=== PATIENT | male | born 1995 | race Caucasian/White ===

== ENCOUNTER 2024-10-27 23:39 | Emergency (ER) | payer SELFPAY ==
--- OUTSIDE RECORDS SUMMARY | 2011-01-18 19:00 | XMS_ITS | Continuity of Care Document ---
Author Organization [facility] Address [address] [place] [address] [place] [address] Phone Care Team Providers Care Personal Development Educator Name Role Phone Provider, Conversion Unavailable Unavailable Allergies, Adverse Reactions, Alerts Substance Reaction Status Criticality No Known Drug Allergies Active No I nformation Medications Medication Instructions Dosage Effective Dates (start - stop) Status Comments benztropine 2 mg tablet MG - Ac tive Concerta 18 mg tablet,extended release MG - Active Depakote 500 mg tablet,delayed release MG - Active risperidone 0.25 mg tablet MG - Active Results Test Name Date and Time Measure Units Reference Range Abnormal Flag Status Commen ts Panel Description: BETA HEMOLYTIC STREP, A ONLY Final Strep 00:00:00 Positive Negative Final Advance Directives Directive Yes / No Effective Date File Name No Information Encounters Encounter Description Practice Location Reason(s) For Visit Diagnoses Date Provider Providers Copied on Encounter [address] [place], [id number], [place] tel:[phone] [facility] No Information 1 Provider Conversion. . [address] [place], [id number], [place] tel:[phone] [facility] No Information Unidentified Provider. [address] [place] [address], [id number], . Family History Family Member Type Diagnosis Age At Onset Family H/O Problem (finding) FHX: Asthma Family H/O Problem (finding) FHX: Cancer, Unspecifie d Family H/O Problem (finding) FHX: Hypertension Payers Payer name Insurance type Covered alliance party ID Authoriza tion(s) No Information Social History Type Description Quantity Date Captured Comments Sex Male Smoking Status No Information Vital Signs Date / Time: Height Weight BMI Pulse Rate Blood Pressure Temperature Respiratory Rate Body Surface Area Head Circumference Head Circ. Percentile Wt./Dax. Percentile BMI percentile Pulse Ox Inhaled Ox 63.00 in 125.00 lbs 88 /min 101/49 mm[Hg] 99.90 F 22 /min Chief Complaint And Reason For Visit No Information Reason For Referral Reason For Referral No Information History Of Present Illness Encounter Date Complaint History Of Prese nt Illness No Information Functional Status Date Functional Assessmen t No Information Instructions Date Instruction Additional Infor mation No Information Assessments Type Assessment Date No Information Patient Care Teams Name Effective Dates (start - stop) Status Members No Information
--- NOTE | ~2024-10-27 | XR_ITS ---
EXAM/PROCEDURE: XR chest 1V - 10/27/2024 23:55 CDT HISTORY: 28 years old Male with sob TECHNIQUE: AP view(s) of the chest. COMPARISON: None available. FINDINGS: LUNGS/ PLEURA: No focal consolidation. No appreciable pneumothorax or large pleural effusion. HEART/ MEDIASTINUM: Heart appears normal in size. BONES: No acute osseous abnormality. OTHER: Visualized upper abdomen is unremarkable. IMPRESSION: No acute process. Reviewed, dictated and finalized at location N. IMPRESSION: No acute process.
[2024-10-27 23:51] VITALS: BP 132/64; PULSE 64; RESP 18; TEMP 36.6; O2SAT 96
[2024-10-28 01:40] VITALS: O2SAT 98
--- NOTE | 2024-10-28 01:44 | ED.GENADULT ---
HPI - General Adult General Chief complaint: Shortness of Breath/Dyspnea Stated complaint: possible pneumonia Time Seen by Provider: 10/28/24 01:41 History of Present Illness HPI narrative: Patient is a 28-year-old male who presents to the emergency department this evening complaining of a cough and shortness of breath for the past 2 days. States that his significant other was recently diagnosed with pneumonia and was concerned that he is developing pneumonia as well. Admits that the cough is productive of some clear phlegm. Denies any fevers or chills at home. No additional symptoms or concerns at this time. Review of Systems Review of Systems: All systems are reviewed and are negative unless stated otherwise in the HPI. Exam Narrative: General: Alert, awake, afebrile, in no acute distress. HEENT: PERRL, no rhinorrhea, no post nasal drip, oropharynx clear. Neck: Trachea midline, no JVD, no lymphadenopathy. Cardiovascular: Regular rate and rhythm, no murmurs, rubs or gallops, no peripheral edema. Respiratory: Clear to auscultation bilaterally, no tachypnea, no wheezing, no rhonchi, no rubs, no respiratory distress. Abdomen: Soft, nontender, nondistended, no rebound, no guarding, no peritoneal signs. Musculoskeletal: No joint swelling or deformity, normal muscle tone. Skin: No rashes or petechia, no signs of infection. Psychiatric: Alert and oriented, normal behavior and judgment for situation. Neurological: Alert and oriented to person, place, and time. Follows all commands. No focal deficits, speech is clear and fluent. Course Vital Signs Vital signs: Vital Signs Temperature 97.8 F 10/27/24 23:51 Pulse Rate 64 10/27/24 23:51 Respiratory Rate 18 10/27/24 23:51 Blood Pressure 132/64 10/27/24 23:51 Pulse Oximetry 96 10/27/24 23:51 Temperature 97.8 F 10/27/24 23:51 Pulse Rate 64 10/27/24 23:51 Respiratory Rate 18 10/27/24 23:51 Blood Pressure 132/64 10/27/24 23:51 Pulse Oximetry 96 10/27/24 23:51 Medical Decision Making MDM Narrative Medical decision making narrative: The patient was evaluated by myself in the emergency department. History is obtained from patient who is an independent historian and physical exam was performed. External medical records were reviewed at this time. Imaging studies obtained included CXR which was independently interpreted by me revealing no acute cardiopulmonary process, which is pending final radiology interpretation. Differential diagnosis considerations include acute viral syndrome, infectious process such as pneumonia, reactive airway disease. Comorbidities impacting this visit include no acute process. I have evaluated and discussed social determinants of health with the patient that could potentially impact subsequent diagnosis and treatment plans. On repeat assessment of the patient, reevaluation revealed that the patient is doing well and is in no acute distress. Patient symptoms have improved since he arrived to our emergency department. Repeat vital signs were all reviewed and noted to be stable. Differential diagnosis and treatment plan were discussed with the patient at bedside. Patient agrees with discussion and after shared medical decision making agrees with discharge. All questions were answered to the patient's satisfaction. Patient will follow up with his PCP in 3-5 days. Patient was provided with strict return precautions and instructed to return to the emergency department if any new or worsening symptoms develop. The patient was discharged in stable condition. Vital Signs Vital Signs: Vital Signs Temperature 97.8 F 10/27/24 23:51 Pulse Rate 64 10/27/24 23:51 Respiratory Rate 18 10/27/24 23:51 Blood Pressure 132/64 10/27/24 23:51 Pulse Oximetry 96 10/27/24 23:51 Temperature 97.8 F 10/27/24 23:51 Pulse Rate 64 10/27/24 23:51 Respiratory Rate 18 10/27/24 23:51 Blood Pressure 132/64 10/27/24 23:51 Pulse Oximetry 96 10/27/24 23:51 Discharge Plan Discharge Clinical Impression: Upper respiratory infection Patient Disposition: Home Condition: Improved Instructions: Antibiotic Form, Upper Respiratory Infection (ED) Additional Instructions: Please follow-up with your family doctor within the next 3-5 days. The emergency department if any new or worsening symptoms develop. Patient Language: Nepali Follow-up/Referrals: Nirali Mobley DO [Physician, Family Practice] - 3 Days PHYSICIAN,INFORMATICA MDM ARCHITECT [Primary Care Provider, Internal Medicine] Time of Disposition: 01:45
== END 2024-10-28 02:10 | disposition home or self-care (01) ==
LOC: ANHED 10-28 01:53
PROVIDERS: Emergency Provider Emergency Medicine
DX: J06.9 Acute upper respiratory infection, unspecified (principal)
CPT/HCPCS: 71045; 99283

== ENCOUNTER 2025-01-15 17:58 | Emergency (ER) | payer SELFPAY ==
--- NOTE | ~2025-01-15 | XR_ITS ---
EXAMINATION: XR chest 2V, 01/15/2025 19:05 BALLAST INSPECTOR HISTORY: Coughing COMPARISON: No comparisons available. Technique: 2 views obtained. Findings: The lungs are clear, no effusion. No pneumothorax. Heart is normal size. Mediastinal and hilar contours are within normal limits. Bony thorax no acute abnormality. Impression: No acute cardiopulmonary abnormality. Reviewed, dictated and finalized at location P. AST INSPECTOR Impression: No acute cardiopulmonary abnormality.
[2025-01-15 18:08] VITALS: BP 118/75; PULSE 63; RESP 18; TEMP 36.6; O2SAT 100
--- NOTE | 2025-01-15 18:15 | ECG_ITS ---
Test Date: 2025-01-15 18:26:07 Measurements Intervals [place] Rate: 63 P: 53 CA: 162 QRS: 64 QRSD: 106 T: 57 QT: 398 QTc: 408 Interpretive Statements SINUS RHYTHM No previous ECG available for comparison Electronically Signed On 01-15-2025 20:00:12 BOTTOM POUNDER [employer]OES by Brook Stevenson M.D.
[2025-01-15] MEDS: ACETAMINOPHEN 500 MG TABLET 1000 MG PO (19:21)
[2025-01-15] MEDS: IBUPROFEN 400 MG TABLET 800 MG PO (19:23)
--- NOTE | 2025-01-15 19:29 | ED_ITS ---
HPI - URI/Sore Throat General Chief Complaint: Upper Respiratory Infection Stated Complaint: cough, sob, chest tightness Time Seen by Provider: 01/15/25 18:40 Source: patient Mode of arrival: ambulatory History of Present Illness HPI Narrative: 29 years old white male complaining of runny nose, nasal and postnasal discharge and coughing and hard to breathe for the last 2 days. Patient report that his little kids had similar symptoms lately, and his have similar symptoms 2 weeks ago. He denies any fever or chills nausea vomiting. He did take medicine home, he smoke cigarettes, denies drinking using drugs Related Data Allergies Allergy/AdvReac Type Severity Reaction Status Date / Time No Known Allergies Allergy Verified 01/15/25 18:02 Review of Systems Review of Systems: All systems reviewed & are unremarkable except as noted in HPI and below Exam Narrative: General appearance: Well-developed, well-nourished Skin: Normal color Head: Normocephalic, nontraumatic Eyes: Clear conjunctiva ENT: Oropharynx normal, ears normal, nose normal Neck: Supple, nontender Chest and respiratory: Airway patent, no respiratory distress, no accessory muscle use Heart: Regular rate/rhythm Abdomen: Soft, nontender, no organomegaly, quiet bowel sounds Vascular: Normal peripheral pulses, normal capillary refill. Musculoskeletal: Normal range of motion, nontender back Neurologic: Alert and oriented ?3, EUCLID OPERATOR is normal as tested, no gross motor deficit Course Vital Signs Vital signs: Vital Signs Temperature 36.6 C 01/15/25 18:08 Pulse Rate 63 01/15/25 18:08 Respiratory Rate 18 01/15/25 18:08 Blood Pressure 118/75 01/15/25 18:08 Pulse Oximetry 100 01/15/25 18:08 Temperature 36.6 C 01/15/25 18:08 Pulse Rate 63 01/15/25 20:47 Respiratory Rate 18 01/15/25 20:47 Blood Pressure 127/73 01/15/25 20:47 Pulse Oximetry 99 01/15/25 20:47 Oxygen Delivery Room Air 01/15/25 18:34 MDM - URI/Sore Throat MDM Narrative Medical decision making narrative: Patient came with upper respiratory viral infection like symptoms Vital signs stable Physical examination is unremarkable Patient tested negative for COVID flu and RSV, Chest x-ray showed no acute abnormality Diagnosis upper respiratory viral infection agency The pt was discharged to home.the pt,s condition upon discharge was fair,education was provided to the pt in reference to the final impression,discharge study results,treatment,prognosis and need for follow up . Differential Diagnosis Differential diagnosis: Likely other (As above) Lab Data Attestation: I reviewed the patient's lab results. Labs: Lab Results 01/15/25 Range/Units 19:21 Influenza A (RT-PCR) Negative (Negative) Influenza B (RT-PCR) Negative (Negative) RSV (RT-PCR) Negative (Negative) SARS-CoV-2 RNA (RT-PCR) Negative (Negative) Imaging Data Radiologist's impression: Impressions Chest X-Ray 01/15/25 19:20 Impression: No acute cardiopulmonary abnormality. Critical Care Time Critical Care Time Critical Care Time: No Discharge Plan Discharge Clinical Impression: Acute upper respiratory infection Patient Disposition: Home Condition: Stable Instructions: Upper Respiratory Infection (ED) Additional Instructions: Return if symptoms are worsening , call your family physician for appointment, take Tylenol, ibuprofen as as needed for aches and pain, continue home medications. Get [id number] cough and cold medicine Patient Language: New Zealander Prescriptions: New oxymetazoline [Afrin (oxymetazoline)] 0.05 % spray,non-aerosol 2 spray intranasal Q12H PRN (Reason: nasal congestion) 3 Days Qty: 15 0RF Follow-up/Referrals: PHYSICIAN,FORMING MACHINE OPERATOR [Primary Care Provider, Internal Medicine] Tee Boyd MD [Physician, Family Practice] - 01/19/25
[2025-01-15 20:01] LABS: Influenza A QL RT-PCR Negative (Negative); Influenza B QL RT-PCR Negative (Negative); RSV RNA, RT-PCR Negative (Negative); SARS-CoV-2 RNA PCR Negative (Negative)
[2025-01-15 20:47] VITALS: BP 127/73; PULSE 63; RESP 18; O2SAT 99
== END 2025-01-15 20:49 | disposition home or self-care (01) ==
PROVIDERS: Emergency Provider Emergency Medicine
DX: J06.9 Acute upper respiratory infection, unspecified (principal); Z20.822 Contact with and (suspected) exposure to COVID-19; F17.210 Nicotine dependence, cigarettes, uncomplicated
CPT/HCPCS: 71046; 87637; 93005; 99283; A9270